=== PATIENT | male | born 1970 | race Caucasian/White ===

== ENCOUNTER 2022-07-13 11:55 | Emergency (ER) | payer MEDICAID, SELFPAY ==
[2022-07-13 12:07] VITALS: BP 170/105; PULSE 87; RESP 18; TEMP 36.7; O2SAT 99
--- NOTE | 2022-07-13 12:11 | ED.URI ---
HPI - URI/Sore Throat General Chief Complaint: Upper Respiratory Infection Stated Complaint: uri Time Seen by Provider: 07/13/22 12:12 Source: patient Mode of arrival: ambulatory Limitations: no limitations History of Present Illness HPI Narrative: Mr. Reilly is a 51-year-old male patient presenting to the clinic today with complaints of productive cough and wheezing. 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 States that he developed a cough and shortness of breath yesterday and its gradually gotten worse today. He denies any fever or chills MD elicited complaint: cough and other (Shortness of breath) Related Data Allergies Allergy/AdvReac Type Severity Reaction Status Date / Time No Known Allergies Allergy Verified 07/13/22 12:02 Review of Systems Review of Systems: Pertinent positives per HPI. Patient denies any fever, chills, rash, headache, visual changes, dizziness, cough, shortness of breath, chest pain, palpitations, nausea, vomiting, diarrhea, constipation, abdominal pain, or any urinary issues. PMFSH Comments At the time of my signature, I reviewed and agree with the nursing past medical, surgical, social, and family history. There is no relevant family history pertinent to the patient complaint. Exam Narrative: General: Well-developed, well nourished, in no apparent distress Head: Normocephalic, atraumatic Eyes: Pupils equally round and reactive to light bilaterally, EOM intact, sclera and conjunctive clear, no discharge, lids normal Ears: TMs intact and clear, ear canals clear, no drainage, grossly hearing normal. Nose: Nares patent, clear nasal discharge, no inflammation, no sinus tenderness. Mouth: Oral pharynx without lesions or masses, good dentition, MMM. Neck: Supple, trachea midline, no enlargement of anterior or posterior cervical nodes, no thyroid masses or goiter palpable. Cardio: Regular rate and rhythm, s1 and s2 normal, no murmur appreciated. Resp: Lung sounds tight, inspiratory and expiratory wheezing, no rhonchi, rales, or rubs, no retractions, able speak in full sentences without gasping for breaths. SPO2 99% on room air Course Course Emergency Course: Portions of this record may have been created with voice recognition software. Level of Care: Express Care Visit Vital Signs Vital signs: Vital signs reviewed MDM - URI/Sore Throat MDM Narrative Medical decision making narrative: At the time of visit patient is resting comfortably in the exam table. I suspect the patient has acute exacerbation of his asthma. He does not currently have a albuterol inhaler or any meds because he just got out of long term. I will send him in a prescription for some albuterol and some prednisone. DuoNeb handheld treatment was given in clinic today and this improved breath sounds in the wheezing. Supportive measures were discussed with the patient he voiced understanding of discharge instructions and agrees to treatment plan Differential Diagnosis Differential diagnosis: Likely upper respiratory infection, otitis media, sinusitis, viral infection, bronchitis, influenza, pharyngitis and other (COVID) Discharge Plan Discharge Clinical Impression: Asthma exacerbation, Upper respiratory infection Patient Disposition: Home, Self-Care Condition: Stable Instructions: Antibiotic Form, Upper Respiratory Infection (ED), Reactive Airways Disease (ED) Additional Instructions: Take prescription medications only as prescribed-prednisone and albuterol inhaler as prescribed Increase fluids and stay well hydrated Tylenol/motrin for pain/fever Flonase and OTC antihistamines as directed Vicks vapor rub to open sinuses Sinus rinses for congestion Cepacol spray, cough drops, throat lozenges, warm tea with honey/lemon, gargle salt water to soothe throat BRAT diet for diarrhea Clear liquids x 24 hours then advanc
[2022-07-13] MEDS: ALBUTEROL SULFATE NEB 2.5 MG/3 ML INH INHALATION (12:23)
[2022-07-13] MEDS: IPRATROPIUM BR 0.02% INH SOLN 0.5 MG/2.5 ML VIAL INHALATION (12:24)
== END 2022-07-13 12:55 | disposition home or self-care (01) ==
PROVIDERS: Emergency Provider Nurse Practitioner Family
DX: J45.901 Unspecified asthma with (acute) exacerbation (principal); J06.9 Acute upper respiratory infection, unspecified
CPT/HCPCS: 94640; 99203; G0463

== ENCOUNTER 2022-11-07 09:04 | Outpatient (CLI) | payer OTHER, SELFPAY ==
--- NOTE | ~2022-11-07 | XR_ITS ---
EXAMINATION: XR cervical spine 4-5V DATE: 11/07/2022 10:03 INDICATION: Neck pain. Back pain. TECHNIQUE: 4 views of cervical spine were obtained. COMPARISON: None. FINDINGS: There is 5 degrees dextrocurvature of cervical spine. There is mild kyphosis of cervical sp ine. Vertebral body heights are normal. There is mild to moderately decreased disc height from C4-C5 through C6-C7. There is multilevel uncovertebral joint osteoarthritis, severe bilaterally from C4-C5 through C6-C7. There is multilevel mild facet joint osteoarthrosis. There is mild central canal steno sis at C4-C5, C5-C6, and C6-C7. No prevertebral soft tissue swelling. There is plate and screw fixati on of the right side of the mandible. IMPRESSION: 1. Moderate cervical spondylosis. Reviewed, dictated and finalized at location A. CAL WRITER
--- NOTE | ~2022-11-07 | XR_ITS ---
Lumbosacral Spine: AP and lateral views Clinical History: Pain Findings: The normal lordotic curve is maintained. The vertebral bodies and posterior elements are i ntact. The intervertebral disc spaces are preserved. The sacroiliac joints are normally outlined. Impression: No significant abnormality. Reviewed, dictated and finalized at [facility]. STOCK RECORDER Impression: No significant abnormality.
--- NOTE | 2022-11-07 11:00 | NEURO_ITS ---
Impression: # Complains of numbness of hands. # Bilateral Carpal Tunnel Syndrome, left more than right. # No ulnar neuropathy. # Needle/EMG exam not requested. Motor Nerve Conduction Upper Extremities Median Nerve Conduction Velocity (m/sec) Terminal Latency (msec) Response Voltage(mV) Elbow-Wrist Wrist Elbow Wrist Right 58 4.0 1 1 Left 59 5.0 1 1 Ulnar Nerve Conduction Velocity (m/sec) Terminal Latency (msec) Response Voltage(mV) Above Elbow Below Elbow Wrist Above Elbow Below Elbow Wrist Right 58 2.6 7 8 Left 57 2.8 5 7 F-Wave Latency Median (ms) Ulnar (ms) Right 27.3 27.8 Left 27.9 27.0 Sensory Nerve Conduction Upper Extremities Median Nerve Stimulation Terminal Latency (msec) Wrist/Digit Response Voltage (uV) Wrist Right 4.7/5.7 16/35 Left 5.3/5.6 17/8 Ulnar Nerve Stimulation Terminal Latency (msec) Wrist/Digit Response Voltage (uV) Wrist Right 3.1 15 Left 3.1 11 Radial Nerve Terminal Latency (msec) Response Voltage(mV) Right 2.4 32 Left 2.4 28 MTDD
== END 2022-11-07 09:05 | disposition home or self-care (01) ==
LOC: ANHNEURO 09:08
DX: R20.0 Anesthesia of skin (principal); G56.03 Carpal tunnel syndrome, bilateral upper limbs; M47.892 Other spondylosis, cervical region
CPT/HCPCS: 72050; 72100; 95911

== ENCOUNTER 2023-01-13 22:21 | Emergency (ER) | payer OTHER, SELFPAY ==
[2023-01-13 22:37] VITALS: BP 165/95; PULSE 89; RESP 14; TEMP 36.6; O2SAT 99
--- NOTE | 2023-01-14 00:12 | ED.EAR ---
HPI - Ear Problem General Chief complaint: Ear Stated complaint: earache Time Seen by Provider: 01/13/23 23:58 History of Present Illness HPI Narrative: 52-year-old male here for evaluation of right ear pain x1 day. Patient states that his pain began yesterday while he was working on his car and he believes some pieces of rust got in his ear. Since then he has had pain and swelling. He denies any fevers, chills, nausea, vomiting, sinus congestion or decreased hearing. He is not a diabetic. Related Data Allergies Allergy/AdvReac Type Severity Reaction Status Date / Time No Known Allergies Allergy Verified 01/13/23 22:21 Review of Systems Review of Systems: Gen.: Denies fevers or chills Eyes: Denies eye pain or visual change ENT: Reports ear pain Respiratory: Denies shortness of breath or cough CV: Denies chest pain or palpitations GI: Denies abdominal pain nausea, emesis or diarrhea denies burning, urgency, frequency or hematuria Musculoskeletal: Denies back pain or muscle pain Neuro: Denies numbness, tingling, weakness or focal weakness Skin: Denies rash Except as documented, all other systems reviewed and negative Exam Narrative: APPEARANCE: Well appearing, no pain in distress, well-nourished. Head: Normocephalic and atraumatic. EYES: PERRLA/EOMI, conjunctivae clear NOSE: No nasal drainage EARS: Right ear canal is swollen and erythematous with small amounts of flaky debris noted, the tympanic membrane is partially visualized due to the above but the aspect that is visualized is intact. There is no mastoid tenderness. THROAT: Oropharynx is clear. Mucous membranes are moist. NECK: Supple. No adenopathy, no masses. RESPIRATORY: Airway patent, respirations nonlabored. Clear to auscultation bilaterally, no rales, rhonchi, wheezing. CARDIOVASCULAR: Regular rate and rhythm without murmurs, rubs, or gallops. ABDOMINAL: Normoactive bowel sounds. Soft, nontender, nondistended. No rebound tenderness or guarding. MUSCULOSKELETAL: Extremities are warm and well-perfused. Moves all extremities well. No edema. NEURO: Normal speech. No focal neurologic deficits. SKIN: Skin is warm and dry. No rashes. PSYCHIATRIC: Normal affect/mood. Course Vital Signs Vital signs: Vital Signs Temperature 97.9 F 01/13/23 22:37 Pulse Rate 89 01/13/23 22:37 Respiratory Rate 14 01/13/23 22:37 Blood Pressure 165/95 H 01/13/23 22:37 Pulse Oximetry 99 01/13/23 22:37 Oxygen Delivery Room Air 01/13/23 22:37 Temperature 97.9 F 01/13/23 22:37 Pulse Rate 89 01/13/23 22:37 Respiratory Rate 14 01/13/23 22:37 Blood Pressure 165/95 H 01/13/23 22:37 Pulse Oximetry 99 01/13/23 22:37 Oxygen Delivery Room Air 01/13/23 22:37 Medical Decision Making MDM Narrative Medical decision making narrative: 52-year-old male here due to swelling and pain of the right ear over the past day, he has swelling of the ear canal with some debris noted on exam consistent with otitis externa. The visualized portion of the TM are intact without evident infection. He be discharged home with topical drops. He is not diabetic and has no mastoid tenderness or pain with movement of the tragus. Return precautions were discussed and he voiced understanding. Vital Signs Vital Signs: Vital Signs Temperature 97.9 F 01/13/23 22:37 Pulse Rate 89 01/13/23 22:37 Respiratory Rate 14 01/13/23 22:37 Blood Pressure 165/95 H 01/13/23 22:37 Pulse Oximetry 99 01/13/23 22:37 Oxygen Delivery Room Air 01/13/23 22:37 Temperature 97.9 F 01/13/23 22:37 Pulse Rate 89 01/13/23 22:37 Respiratory Rate 14 01/13/23 22:37 Blood Pressure 165/95 H 01/13/23 22:37 Pulse Oximetry 99 01/13/23 22:37 Oxygen Delivery Room Air 01/13/23 22:37 Discharge Plan Discharge Clinical Impression: Otitis externa Patient Disposition: Home, Self-Care Condition: Stable Instructions: Antibiotic Form, Ear Infection (ED) Alex
== END 2023-01-14 00:38 | disposition home or self-care (01) ==
LOC: ANHED 01-14 00:18
PROVIDERS: Emergency Provider Physician Assistant
DX: H60.91 Unspecified otitis externa, right ear (principal)
CPT/HCPCS: 99283

== ENCOUNTER 2023-05-10 08:26 | Inpatient (IN) | payer OTHER, SELFPAY ==
[2023-05-10] VITALS (26 sets, daily range): BP systolic 121–157; BP diastolic 82–96; PULSE 93–116; RESP 12–36; TEMP 36.6–37.1; O2SAT 94–100; BMI 32.3
--- NOTE | ~2023-05-10 | CT_ITS ---
EXAMINATION: CT abdomen pelvis w con DATE: 05/12/2023 09:06 INDICATION: Abdominal wall intramuscular abscess TECHNIQUE: Computed tomography (CT) of the abdomen and pelvis was performed with 100 mL Omnipaque-350 intravenous contrast. Automated exposure control and iterative reconstruction technique were employe d. The dose-length product was 592.20 mGy-cm. COMPARISON: 05/10/2023 FINDINGS: Interval placement of a left lower quadrant percutaneous abscess drainage catheter which extends into the lateral side of a bilobed peripherally enhancing abscess cavity in the deep aspect of the left r ectus abdominis muscle. The catheter extends into the slightly larger more medial component of the ab scess cavity located along the midline slightly inferior to the umbilicus. The abscess cavity has dec reased in volume measuring 12.3 x 2.4 x 6.7 cm, previously 12.4 x 4.0 x 7.9 cm. Unchanged mild elevation the left hemidiaphragm. Increased atelectasis in the bilateral lower lobes a nd lingula. Heart size is normal. No pericardial or pleural effusion. Liver, gallbladder, spleen, escobar creas, bilateral adrenal glands and kidneys are normal. Bowels including the appendix are normal. Jose dder is normal. Small fat-containing inguinal hernias, left greater than right. No free intraperitone al gas or fluid. No pathologically enlarged abdominal or pelvic lymphadenopathy. Mild thoracic spondy losis. IMPRESSION: 1. Decrease in size of a now 12.3 x 2.4 x 6.7 cm abscess within the deep lower abdominal wall with pe rcutaneous drainage catheter in expected position. Reviewed, dictated and finalized at location A. IMPRESSION: 1. Decrease in size of a now 12.3 x 2.4 x 6.7 cm abscess within the deep lower abdominal wall with percutaneous drainage catheter in expected position.
--- NOTE | ~2023-05-10 | US_ITS ---
EXAMINATION: US guide abscess drainage DATE: 05/10/2023 14:38 INDICATION: Deep rectus abdominis muscular abscess TECHNIQUE: The procedure including the risks and benefits was discussed with the patient. Risks discu ssed included bleeding, infection and allergic reaction. Oral and written consent were obtained. The patient was confirmed to be receiving appropriate antibiotic coverage. The skin at the left lower qu adrant overlying the lateral margin of the abscess was prepped and draped in usual sterile fashion. Anesthetic was administered with 1% lidocaine subcutaneously. A 10 Fr catheter was inserted into the abscess cavity by trocar technique. The needle tip was withdrawn and the drainage catheter with stiff ener were advanced more medially across the abscess cavity utilizing ultrasound guidance. The metal s tiffener and trocar needle were removed, and the pigtail tip was locked. 13 mm of opaque booker purulent appearing fluid was aspirated and sent for culture. The catheter was stitched to the skin with sutur e. About equipment and a sterile dressing were applied. An additional adhesive fixation device was ap plied. There were no immediate complications. FINDINGS: Ultrasound images demonstrate a complex fluid collection within the deep aspect of the left rectus abdominis muscle. Subsequent images demonstrate the catheter extending from lateral to medial into the fluid collection. 13 mL round appearing fluid was aspirated. IMPRESSION: 1. Successful ultrasound-guided left rectus abdominis muscle. This abscess drainage catheter placemen t. 2. 13 mL round appearing fluid was sent for Gram stain and aerobic and anaerobic cultures. 3. The catheter will be managed by Dr. Garcia. Reviewed, dictated and finalized at location A. IMPRESSION: 1. Successful ultrasound-guided left rectus abdominis muscle. This abscess ian cheney catheter placement. 2. 13 mL round appearing fluid was sent for Gram stain and aerobic and anaerobi c cultures. 3. The catheter will be managed by Dr. Garcia.
--- NOTE | ~2023-05-10 | CT_ITS ---
CT of the Abdomen and Pelvis: Indication: Abdominal pain, mass Technique: 2.5 mm axial scans were obtained through the abdomen and pelvis following intravenous adm inistration of 100 cc of Omnipaque 350. Dose reduction technique was used on this scan by utilizing a utomated exposure control and iterative reconstruction technique. The dose-length product (DLP) was 6 71.25 mGy-cm. Findings: Scans through the lung bases are unremarkable. The liver, spleen, pancreas, gallbladder, adrenals and kidneys are within normal limits. No evidence of aortic aneurysm. No lymphadenopathy. No bowel obstruction or bowel wall thickening. Normal appendix. There is a 12.1 x 3.9 x 7.9 cm periph erally enhancing fluid collection immediately deep to accessory abutting the rectus abdominis muscula ture (axial images 115-143).. Images through the pelvis were performed. Urinary bladder unremarkable. Prostate gland and seminal ve sicles are unremarkable. Small fat-containing left inguinal hernia noted No ascites. Impression: 12.1 x 3.9 x 7.9 cm abscess medially subjacent/deep to the rectus abdominis musculature, as detailed above. Consider percutaneous drainage. Small fat-containing left inguinal hernia. Reviewed, dictated and finalized at location . Impression: 12.1 x 3.9 x 7.9 cm abscess medially subjacent/deep to the rectus abdominis mus culature, as detailed above. Consider percutaneous drainage. Small fat-containing left inguinal hernia.
[2023-05-10 09:27] LABS: Basophils Absolute Auto 0.1 K/mm3 (0.0-0.1); Basophils Percent Auto 0.2 % (0.2-1.2); Eosinophils Absolute Auto 0.1 K/mm3 (0-0.3); Eosinophils Percent Auto 0.2 % (0-4.4); Hematocrit 40.8 % (42.0-52.0); Hemoglobin 13.3 g/dL (14.0-18.0); Immature Granulocyte Absolute 0.33 K/mm3 (0.00-0.031); Immature Granulocyte Percent A 1.3 % (0-0.5); Lymphocytes Absolute Auto 1.35 K/mm3 (0.9-3.2); Lymphocytes Percent Auto 5.5 % (18.3-44.2); Mean Corpuscular HGB Conc 32.6 g/dl (32-36); Mean Corpuscular Hemoglobin 27.8 pg (26-34); Mean Corpuscular Volume 85.4 fl (80-100); Mean Platelet Volume 9.1 fl (7.4-10.4); Monocytes Absolute Auto 1.5 K/mm3 (0.1-0.6); Monocytes Percent Auto 5.9 % (2.6-8.5); Neutrophils Absolute Auto 21.5 K/mm3 (1.3-6.7); Neutrophils Percent Auto 86.9 % (45.5-73.1); Platelet Count Result 357 k/mm3 (150-375); Red Blood Count 4.78 M/mm3 (4.6-6.20); Red Cell Distribution Width 13.3 % (11.5-14.5); White Blood Count 24.7 K/mm3 (4.5-10.0)
[2023-05-10 09:36] LABS: Alanine Aminotransferase 24 U/L (6-50); Albumin Level 3.5 g/dL (3.5-5.1); Alkaline Phosphatase 95 U/L (38-126); Anion Gap 11 mmol/L (8-16); Aspartate Amino Transferase 28 U/L (17-59); Bilirubin,Total 0.5 mg/dL (0.2-1.3); Blood Urea Nitrogen 15 mg/dL (9-20); Calcium 8.7 mg/dL (8.4-10.2); Carbon Dioxide 24 mmol/L (22-30); Chloride 99 mmol/L (98-107); Estimated CRCL calculation 89 ml/min; Estimated Glomerular Filt Rate > 60; Glucose 145 mg/dL (65-110); Lipase 198 U/L (23-300); Potassium 4.4 mmol/L (3.4-5.0); Sodium 134 mmol/L (137-145)
[2023-05-10] MEDS: KETOROLAC 30 MG/ML VIAL (*BKC) IV PUSH (09:37)
[2023-05-10] MEDS: SODIUM CHLORIDE 0.9% IV 1,000 ML 999 ML IV CONT (09:37)
[2023-05-10 10:02] LABS: Lactic Acid Reflex 1.5 mmol/L (0.7-2.0)
--- NOTE | 2023-05-10 11:07 | ED.ABDPAIN ---
HPI - Abdominal Pain General Chief Complaint: Abdominal Pain Stated Complaint: abd pain Time Seen by Provider: 05/10/23 08:44 Source: patient and RN notes reviewed Mode of arrival: ambulatory Limitations: no limitations History of Present Illness HPI narrative: This is a 52 year old male who denies any medical problems who presents for evaluation of abdominal pain. Patient states has had constant left lower abdominal pain for 2 weeks. He has also noticed painful lump in that area for 2 months. He was seen at another facility a few days ago, and he is unsure of what was done at the facility. He states he was given some medication for pain but he is unsure of the medication. He reports decreased appetite but no vomiting. He denies any injury. Related Data Home Medications Medication Instructions Recorded Confirmed loratadine 10 mg tablet (Allergy 10 mg PO DAILY 05/10/23 05/10/23 Relief (loratadine)) Allergies Allergy/AdvReac Type Severity Reaction Status Date / Time No Known Allergies Allergy Verified 01/13/23 22:21 Review of Systems Constitutional: Constitutional: Reports fatigue and Denies weakness Cardiovascular: Cardiovascular: Denies syncope, Denies rapid heart rate, Denies irregular heart rhythm, Denies leg edema and Denies dyspnea Respiratory: Respiratory: Denies chest congestion, Denies hemoptysis, Denies excessive phlegm production and Denies dyspnea Gastrointestinal: Gastrointestinal: Reports abdominal pain, Denies hematochezia, Denies diarrhea and Denies vomiting Genitourinary: Genitourinary: Denies hematuria, Denies dysuria, Denies penile discharge and Denies testicular pain Musculoskeletal: Musculoskeletal: Denies joint swelling, Denies loss of height and Denies muscle weakness Neurologic: Denies syncope, Denies focal weakness and Denies weakness PMFSH Past Medical History Medical History (Updated 05/10/23 @ 17:48 by Nadira Thornton NP) Allergic rhinitis Asthma Patient denies medical problems Surgical History Surgical History (Updated 05/10/23 @ 17:48 by Nadira Thornton NP) History of mandibular surgery Related to an injury the patient had mandibular fracture. S/P repair of hydrocele S/P tonsillectomy and adenoidectomy Family History Family History Father Lung cancer Malignant neoplasm of prostate Father No problems noted. Social History Social History (Updated 05/10/23 @ 17:50 by Nadira Thornton NP) Social History: The patient has no children but lives with his significant other. 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 He is a lifelong nonsmoker. He denies any alcohol marijuana or illicit drugs. He does not have a durable power admitted attorneys for healthcare. Code status full code Smoking status: Never smoker Alcohol intake: never Substance use: never Lack of Transportation: No Lack of Food: Never True Current Housing: I Have Housing Concerned About Future Housing: No Difficulty Paying Gas/Electric Bills: No Difficulty Paying for Meds: No Currently Unemployed: No Education: Decline to Answer Difficulty w/ Childcare or Family Care: No Spiritual care concerns: No Exam Const: General: no acute distress Orientation/consciousness: patient oriented x3 HENMT: Head: normal to inspection Eyes: EOM: EOMs intact bilaterally Chest: Chest palpation & inspection: normal inspection of the chest Resp: Effort & Inspection: normal respiratory effort Auscultation: clear to auscultation bilaterally Cardio: Rhythm: regular rhythm Heart sounds: no murmurs GI: GI Palp: Yes Soft to palpation, Yes Tenderness to palpation present (GI) and Yes Palpable mass present (suprapubic and left lower abdominal mass) Auscultation: normal bowel sounds Skin: General skin exam: normal color Rashes: no rashes Wounds: no wou
[2023-05-10 11:50] LABS: Appearance Urine Clear (Clear); Bacteria Urine None Seen /hpf; Bilirubin Urine Negative (Negative); Blood Urine Negative (Negative); Color Urine Yellow (Yellow); Glucose Urine UA Negative (Negative); Ketones Urine Negative (Negative); Leukocyte Esterase Ur Negative LEU/UL (Negative); Nitrate Urine Negative (Negative); Non Pathogenic Casts 0-2; Protein Urine Trace mg/dL (Negative); RBC Urine 0-2 /hpf (0-2); Specific Grav Ur 1.034 (1.001-1.035); Squamous Epithelial Cell Urine None seen /hpf (Few); Urobilinogen Urine 0.2 mg/dL (<2.0); WBC Urine 0-5 /hpf
[2023-05-10 12:04] LABS: Add Urine Microscopic? YES
--- NOTE | 2023-05-10 12:15 | ADMGEN ---
This patient, Jorgito Reilly, was admitted to [address] [place] [address] Room 300-01. Patient/family oriented to hospital policies and general routines including ID bracelet, bed and alarms, visiting hours, pain management, procedures, bathroom and other care routines, personal items, smoking policy, room service/diet, and visiting hours. Information on how to activate the Rapid Response Team has been discussed. Patient/Family are encouraged to report perceived risks to care and to ask questions if they do not understand what they are told or what they should do.
[2023-05-10 12:54] LABS: INR 1.2; Prothrombin Time 16.2 Seconds (11.1-14.7)
[2023-05-10 12:55] LABS: Partial Thromboplastin Time 33.8 SECONDS (22.3-36.8)
[2023-05-10] MEDS: PIPERACILLN/TAZ 3.375GM/NS50ML 3.375 GM/50 ML BAG IVPB ×2 (13:00→17:24)
[2023-05-10] MEDS: SODIUM CHLORIDE 0.9% IV 1,000 ML 200 ML IV CONT ×2 (14:51→20:22)
--- NOTE | 2023-05-10 15:06 | PM.IMHP ---
H&P: HPI History of Present Illness Date/Time: 05/10/23 15:06 Chief Complaint: Abdominal pain Narrative: This is a 52-year-old male patient who has no prior medical history except for asthma and is usually well controlled and has a p.r.n. inhaler. 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 The patient stated that he has had a constant left lower abdominal pain for the last 2 weeks. He also noticed a painful lump to that area. The patient was seen at another facility a few days ago. The patient stated he was sent home on p.o. antibiotics and he was not getting any better. He was also given pain medication which did not help. He reports a decreased appetite but had no vomiting. The patient is now stating that he is hungry. His white count was noted to be 24.7. H&H is 13.3 and 40.8. Neutrophil percentage 86.9. Sodium is 134. Had abdominal pelvis CT was read as a following 12.1 x 3.9 x 7.9 cm abscess medially subjacent/deep to the rectus abdominis musculature, as detailed above. Consider percutaneous drainage. Small fat-containing left inguinal hernia. Abscess drainage ultrasound was read as following 1. Successful ultrasound-guided left rectus abdominis muscle. This abscess drainage catheter placement. ? 2. 13 mL round appearing fluid was sent for Gram stain and aerobic and anaerobic cultures.? 3. The catheter will be managed by Dr. Garcia. The patient was started on IV fluids Toradol and given Zosyn. The patient is being admitted to inpatient status on the date of service of 05/10/2023. Review of Systems Review of Systems: All systems reviewed & are unremarkable except as noted in HPI and below Constitutional: Constitutional: Reports as per HPI and Reports no additional constitutional complaints Eyes: Eyes: Reports as per HPI and Reports no additional eye complaints ENT: Reports system reviewed and no additional complaints, except as documented and Reports Normal hearing present Cardiovascular: Cardiovascular: Reports no additional cardiovascular complaints Respiratory: Respiratory: Reports no additional respiratory complaints and Reports no additional respiratory complaints Gastrointestinal: Gastrointestinal: Reports as per HPI and Reports no additional gastrointestinal complaints Musculoskeletal: Musculoskeletal: Reports no additional musculoskeletal complaints Integumentary/Breasts: Skin/Breast: Reports system reviewed and no additional complaints, except as docu and Reports as per HPI Neurologic: Reports system reviewed and no additional complaints, except as documented, Reports as per HPI and Reports Normal hearing present Psychiatric: Psychiatric: Reports no additional psychiatric complaints and Reports as per HPI Endocrine: Endocrine: Reports no additional endocrine complaints Hematologic/Lymphatic: Hematologic/Lymphatic: Reports no additional hematologic/lymphatic complaints Allergic/Immunologic: Allergic/Immunologic: Reports no additional allergic/immunologic complaints [facility] Past Medical History Medical History (Updated 05/10/23 @ 17:48 by Nadira Thornton NP) Allergic rhinitis Asthma Patient denies medical problems Surgical History Surgical History (Updated 05/10/23 @ 17:48 by Nadira Thornton NP) History of mandibular surgery Related to an injury the patient had mandibular fracture. S/P repair of hydrocele S/P tonsillectomy and adenoidectomy Family History Family History Father Lung cancer Malignant neoplasm of prostate Father No problems noted. Social History Social History (Updated 05/10/23 @ 17:50 by Nadira Thornton NP) Social History: The patient has no children but lives with his significant other. 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 He is a lifelong nonsmoker. He denies any alcohol marijuana or illi
--- NOTE | 2023-05-10 16:12 | WPDCN ---
Assessment and Plan Assessment and plan (1) Abdominal abscess: Status: Acute Assessment and Plan: Patient has intra-abdominal abscess just deep to the rectus muscle in the periumbilical region. He has had no prior history of diverticulitis or colitis or enteritis. He has not had any previous abdominal surgery and no pieces of mesh in the abdominal wall. He denies any significant trauma to the area that may have formed hematoma particular got infected. Another thought maybe that he has a urachal cyst which got infected and caused this abscess. However he has had no urinary symptoms. At this point the abscess has been drained percutaneously with image guidance. He remains on IV antibiotics. Will await culture results to make sure that we were appropriately covering the offending organisms. He can go and have a diet for now. Likely repeat CT scan a couple days to make sure the abscess resolved and then hopefully remove the drain. For now he does not have acute surgical abdomen and no general surgeon procedures are indicated. Will follow. HPI Data of Consult Date/Time: 05/10/23 16:12 Requesting Physician: Zuleima Tijerina MD Primary Care Provider: HEAVY LIFT RIGGER PHYSICIAN Consult Narrative Reason for consult: Abdominal pain and intra-abdominal abscess Narrative: Jorgito Reilly is a 52 year old male who presented to the emergency room complaining of a 2 week history of slowly worsening mid abdominal pain in the area the umbilicus. He has noticed swelling in the area. Denies any nausea or vomiting. Bowel habits were normal. He denies any significant trauma to the area but he does work where that area of his abdomen is in contact with some machinery and regular rubs up against it. He denies any recent history of infection of his umbilicus. He has never had abdominal surgery in the past. Workup in the emergency room showed him to have a leukocytosis of 25,000. He was afebrile. CT scan abdomen pelvis showed a large abscess in the central portion abdomen in the area underneath the umbilicus. Was intra-abdominal deep to the rectus muscles. He was initially treated emergency room and given some IV antibiotics. He has now been treated with image guided percutaneous drainage of the abscess in Radiology. Output from the drain is purulent fluid and cultures of the fluid were sent to microbiology and are pending. Review of Systems Review of Systems: The remainder of the review of systems to include constitutional, HEENT, cardiovascular, respiratory, GI, , integumentary, musculoskeletal, endocrine, immunologic, hematologic, psychiatric, and neurologic are all negative except for which is mentioned above in the HPI. [facility] Past Medical History Medical History Patient denies medical problems Surgical History Surgical History No pertinent past surgical history Family History Family History Father Lung cancer Malignant neoplasm of prostate Father No problems noted. Social History Social History Smoking status: Never smoker Alcohol intake: never Substance use: never Lack of Transportation: No Lack of Food: Never True Current Housing: I Have Housing Concerned About Future Housing: No Difficulty Paying Gas/Electric Bills: No Difficulty Paying for Meds: No Currently Unemployed: No Education: Decline to Answer Difficulty w/ Childcare or Family Care: No Spiritual care concerns: No Meds Home Medications and Allergies Home Medications Medication Instructions Recorded Confirmed Type albuterol sulfate 90 mcg/actuation 2 puff inhalation Q4-6H PRN 07/13/22 05/10/23 Rx aerosol inhaler shortness of breath or wheezing 30 days #8.5 grams prednisone 20 mg table
[2023-05-10] MEDS: MORPHINE SULFATE (*CRX) 4 MG/ML INJ IV PUSH ×2 (17:22→23:59)
[2023-05-11] MEDS: PIPERACILLN/TAZ 3.375GM/NS50ML 3.375 GM/50 ML BAG IVPB ×4 (00:01→17:24)
[2023-05-11] MEDS: SODIUM CHLORIDE 0.9% IV 1,000 ML 200 ML IV CONT ×2 (02:07→08:40)
[2023-05-11] MEDS: MORPHINE SULFATE (*CRX) 4 MG/ML INJ IV PUSH (04:40)
[2023-05-11 06:00] VITALS: BP 145/89; PULSE 104; RESP 20; TEMP 36.7; O2SAT 100
[2023-05-11 06:42] LABS: Basophils Absolute Auto 0.1 K/mm3 (0.0-0.1); Basophils Percent Auto 0.4 % (0.2-1.2); Eosinophils Absolute Auto 0.1 K/mm3 (0-0.3); Eosinophils Percent Auto 0.4 % (0-4.4); Hematocrit 40.6 % (42.0-52.0); Hemoglobin 12.4 g/dL (14.0-18.0); Immature Granulocyte Percent A 1.1 % (0-0.5); Lymphocytes Absolute Auto 1.54 K/mm3 (0.9-3.2); Lymphocytes Percent Auto 8.5 % (18.3-44.2); Mean Corpuscular HGB Conc 30.5 g/dl (32-36); Mean Corpuscular Hemoglobin 27.6 pg (26-34); Mean Corpuscular Volume 90.2 fl (80-100); Mean Platelet Volume 10.2 fl (7.4-10.4); Monocytes Absolute Auto 1.4 K/mm3 (0.1-0.6); Monocytes Percent Auto 7.6 % (2.6-8.5); Neutrophils Absolute Auto 14.8 K/mm3 (1.3-6.7); Platelet Count Result 294 k/mm3 (150-375); Red Cell Distribution Width 13.7 % (11.5-14.5)
[2023-05-11 06:53] LABS: Lactic Acid Reflex 2.1 mmol/L (0.7-2.0)
[2023-05-11 06:56] LABS: Alanine Aminotransferase 20 U/L (6-50); Albumin Level 3.3 g/dL (3.5-5.1); Alkaline Phosphatase 87 U/L (38-126); Anion Gap 8 mmol/L (8-16); Aspartate Amino Transferase 28 U/L (17-59); Bilirubin,Total 0.6 mg/dL (0.2-1.3); Blood Urea Nitrogen 16 mg/dL (9-20); Calcium 8.1 mg/dL (8.4-10.2); Carbon Dioxide 24 mmol/L (22-30); Chloride 102 mmol/L (98-107); Estimated CRCL calculation 80 ml/min; Estimated Glomerular Filt Rate > 60; Glucose 104 mg/dL (65-110); Potassium 4.6 mmol/L (3.4-5.0); Sodium 134 mmol/L (137-145)
[2023-05-11] MEDS: LORATADINE 10 MG TABLET PO (08:41)
[2023-05-11 09:41] LABS: Reflex Lactic Acid Yes or No Add Lactic
[2023-05-11 10:17] LABS: Lactic Acid 1.4 mmol/L (0.7-2.0)
--- NOTE | 2023-05-11 12:30 | PM.IMPN ---
Progress Note: A&P Assessment and Plan (1) Abdominal abscess: Status: Acute Assessment and Plan: Presented presented to the ED with complaints of constant left lower abdominal pain for about [address] of the abd/pel 12.1 x 3.9 x 7.9cm abscess medially subjacent/deep rectus abdominis musculature General surgery consulted Continue Zosyn Q6H IV for now Perc Drain inserted Blood cultures pending Wound cultures WBC no organisms seen WBC 24.7 upon admission, 18.0 currently continue to trend (2) Asthma: Qualifiers: Asthma complication type: unspecified Asthma persistence: unspecified Asthma severity: unspecified severity Qualified Code(s): J45.909 - Unspecified asthma, uncomplicated Code(s): J45.909 - Unspecified asthma, uncomplicated Status: Acute Assessment and Plan: Chronic and stable Continue with inhaler trend respiratory distress stable at this time (3) Allergic rhinitis: Qualifiers: Allergic rhinitis seasonality: unspecified Allergic rhinitis trigger: unspecified Qualified Code(s): J30.9 - Allergic rhinitis, unspecified Code(s): J30.9 - Allergic rhinitis, unspecified Status: Acute Assessment and Plan: Continue with allergy medicine. (4) Sepsis: Qualifiers: Sepsis type: sepsis due to unspecified organism Sepsis acute organ dysfunction status: unspecified Qualified Code(s): A41.9 - Sepsis, unspecified organism Code(s): A41.9 - Sepsis, unspecified organism Status: Acute Assessment and Plan: Currently meets SIRS criteria heart rate 116, RR 36, Lactic acid 2.1, WBC was 24.7 source of infection Source of infection is the abdominal abscess CT of abdomen shows pretty large abscess Repeat Lactic 1.4 Blood cultures pending wound culture does not show any organisms Continue IV antibiotics Zosyn Trend labs Adjust therapy as indicated Time Spent With Patient Time: 38 minutes Time with patient: Greater than 35 minutes Subjective Date/time seen: 05/11/23 1230 Interval history: 05/11/23 123 Patient is laying in bed. He is stating that he is have a sinus headache. He also stated that he is having some abdominal pain. He stated that the headache is worse than the abdominal pain. He denies any chest pain, shortness of breath, nausea, vomiting, diarrhea, constipation. Drain is intact, draining a thick booker fluid. 05/10/23? 15:06 This is a 52-year-old male patient who has no prior medical history except for asthma and is usually well controlled and has a p.r.n. inhaler.? 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 The patient stated that he has had a constant left lower abdominal pain for the last 2 weeks.? He also noticed a painful lump to that area.? The patient was seen at another facility a few days ago.? The patient stated he was sent home on p.o. antibiotics and he was not getting any better.? He was also given pain medication which did not help.? He reports a decreased appetite but had no vomiting.? The patient is now stating that he is hungry.? His white count was noted to be 24.7.? H&H is 13.3 and 40.8.? Neutrophil percentage 86.9.? Sodium is 134.? Had abdominal pelvis CT was read as a following?12.1 x 3.9 x 7.9 cm abscess medially subjacent/deep to the rectus abdominis musculature, as detailed above. Consider percutaneous drainage. Small fat-containing left inguinal hernia. Abscess drainage ultrasound was read as following 1. Successful ultrasound-guided left rectus abdominis muscle. This abscess drainage catheter placement. ? 2. 13 mL round appearing fluid was sent for Gram stain and aerobic and anaerobic cultures.? 3. The catheter will be managed by Dr. Garcia. The patient was started on IV fluids Toradol and given Zosyn.? The patient is being admitted to inpatient status on the date of service of
[2023-05-11 14:00] VITALS: BP 135/90; PULSE 99; RESP 20; TEMP 36.2; O2SAT 100
[2023-05-11] MEDS: METOCLOPRAMIDE HCL INJ 10 MG/2 ML VIAL IV PUSH (14:57)
[2023-05-11] MEDS: diphenhydrAMINE HCl INJ 50 MG/ML VIAL 25 MG IV PUSH (14:57)
--- NOTE | 2023-05-11 16:25 | PM.PNGS ---
Progress Note: A&P Assessment and Plan (1) Abdominal abscess: Status: Acute Assessment and Plan: Abscess has been drained. Continue IV antibiotics and await culture results. Repeat CT scan in 24 to 48 hours to see if the abscess has resolved. Continue supportive management. Will follow. Subjective Subjective Date/Time Seen: 05/11/23 16:25 Interval history: Patient is doing better today. Having less mid abdominal wall pain. He had a ultrasound-guided placement of a percutaneous drain into the abscess cavity yesterday. Culture results are still pending . White blood cell count is down 18,000 today. He is tolerating regular diet. Exam GI: Other: Abdomen soft and nondistended. Still has some vague firmness in the periumbilical region. No fluctuance is noted. No redness skin is noted. Drain exits the left lower quadrant the abdomen. Output from the drain is purulent. Objective Data Vital Signs Vital Signs: Vital Signs - 24 hr 05/10/23 20:00 05/10/23 21:52 05/10/23 22:00 Temperature 36.9 C Pulse Rate 95 108 H 96 Respiratory Rate 16 14 Blood Pressure 140/91 H Pulse Oximetry 100 96 98 Oxygen Delivery Room Air Room Air Fraction of Inspired Oxygen 21 05/11/23 06:00 05/11/23 08:40 05/11/23 14:00 Temperature 36.7 C 36.2 C L Pulse Rate 104 H 99 Respiratory Rate 20 20 Blood Pressure 145/89 H 135/90 Pulse Oximetry 100 100 Oxygen Delivery Room Air Fraction of Inspired Oxygen Intake/Output Intake/Output: Intake & Output 05/08/23 05/09/23 05/10/23 05/11/23 23:59 23:59 23:59 23:59 Intake Total 2572 2914 Output Total 13 960 Balance 4357 3404 Meds/Results Medications: Active Medications Generic Name Dose Route Start Last Admin Trade Name Freq PRN Reason Stop Dose Admin Hydrocodone Bitart/Acetaminophen 1 tab 05/10/23 17:57 Hydrocodone/Acetaminophen (*Crx) 5-325 Mg Tablet PO Q4H PRN Pain Rated 4-6 Albuterol 2 puff 05/10/23 17:54 Albuterol Sulfate (*Sp) Aerosol 1 Puff INHALATION Q4HRT PRN shortness of breath or wheezing Piperacillin/Tazobactam/Dextrose 3.375 gm in 50 mls @ 100 mls/hr 05/10/23 18:00 05/11/23 13:03 Zosyn 3.375 Gm/Ns 50 Ml IVPB Infused Q6HR SOFIA Infusion Loratadine 10 mg 05/11/23 09:00 05/11/23 08:41 Loratadine 10 Mg Tablet PO 10 mg DAILY SOFIA Administration Morphine Sulfate 4 mg 05/10/23 11:09 05/11/23 04:40 Morphine Sulfate (*Crx) 4 Mg/Ml Inj IV PUSH 4 mg Q4H PRN Administration Pain Rated 7-10 Ondansetron HCl 4 mg 05/10/23 11:09 Ondansetron Inj 4 Mg/2 Ml Vial IV PUSH Q4H PRN Nausea Radiology Results: ITS Impressions Abdomen/Pelvis CT 05/10/23 10:14 Impression: 12.1 x 3.9 x 7.9 cm abscess medially subjacent/deep to the rectus abdominis musculature, as detailed above. Consider percutaneous drainage. Small fat-containing left inguinal hernia. Abscess Drainage Ultrasound 05/10/23 14:42 IMPRESSION: 1. Successful ultrasound-guided left rectus abdominis muscle. This abscess drainage catheter placement. 2. 13 mL round appearing fluid was sent for Gram stain and aerobic and anaerobic cultures. 3. The catheter will be managed by Dr. Garcia. Labs Labs: Laboratory Results - last 24 hr 05/11/23 05/11/23 06:02 09:54 WBC 18.0 H RBC 4.50 L Hgb 12.4 L Hct 40.6 L MCV 90.2 D MCH 27.6 MCHC 30.5 L RDW 13.7 Plt Count 294 MPV 10.2 Immature Gran % (Auto) 1.1 H Neut % (Auto) 82.0 H Lymph % (Auto) 8.5 L Benton % (Auto) 7.6 Eos % (Auto) 0.4 Baso % (Auto) 0.4 Lymph # (Auto) 1.54 Benton # (Auto) 1.4 H Eos # (Auto) 0.1 Baso # (Auto) 0.1 Abs Immat Gran (auto) 0.20 H Absolute Neuts (auto) 14.8 H Absolute Nucleated RBC 0.0 Nucleated RBC % 0.0 Sodium 134 L Potassium 4.6 Chloride 102 Carbon Dioxide 24 Anion Gap 8 BUN 16 Creatinine 1.00 Estim Creat Clear Calc
[2023-05-11 21:40] VITALS: O2SAT 95
[2023-05-11 21:50] VITALS: BP 136/80; PULSE 89; RESP 14; TEMP 36.7; O2SAT 95
[2023-05-12] MEDS: PIPERACILLN/TAZ 3.375GM/NS50ML 3.375 GM/50 ML BAG IVPB ×4 (01:10→19:58)
[2023-05-12 06:00] VITALS: BP 129/89; PULSE 87; RESP 14; TEMP 35.9; O2SAT 99
[2023-05-12 06:47] LABS: Basophils Absolute Auto 0.1 K/mm3 (0.0-0.1); Basophils Percent Auto 0.4 % (0.2-1.2); Eosinophils Absolute Auto 0.2 K/mm3 (0-0.3); Eosinophils Percent Auto 1.1 % (0-4.4); Hematocrit 42.4 % (42.0-52.0); Hemoglobin 13.3 g/dL (14.0-18.0); Immature Granulocyte Absolute 0.21 K/mm3 (0.00-0.031); Immature Granulocyte Percent A 1.5 % (0-0.5); Lymphocytes Absolute Auto 1.33 K/mm3 (0.9-3.2); Lymphocytes Percent Auto 9.2 % (18.3-44.2); Mean Corpuscular HGB Conc 31.4 g/dl (32-36); Mean Corpuscular Hemoglobin 27.7 pg (26-34); Mean Corpuscular Volume 88.1 fl (80-100); Mean Platelet Volume 9.6 fl (7.4-10.4); Monocytes Absolute Auto 1.1 K/mm3 (0.1-0.6); Monocytes Percent Auto 7.6 % (2.6-8.5); Neutrophils Absolute Auto 11.6 K/mm3 (1.3-6.7); Neutrophils Percent Auto 80.2 % (45.5-73.1); Platelet Count Result 380 k/mm3 (150-375); Red Blood Count 4.81 M/mm3 (4.6-6.20); Red Cell Distribution Width 13.2 % (11.5-14.5); White Blood Count 14.5 K/mm3 (4.5-10.0)
[2023-05-12 07:09] LABS: Alanine Aminotransferase 47 U/L (6-50); Albumin Level 3.6 g/dL (3.5-5.1); Alkaline Phosphatase 117 U/L (38-126); Anion Gap 12 mmol/L (8-16); Aspartate Amino Transferase 62 U/L (17-59); Bilirubin,Total 0.4 mg/dL (0.2-1.3); Blood Urea Nitrogen 14 mg/dL (9-20); Calcium 8.7 mg/dL (8.4-10.2); Carbon Dioxide 23 mmol/L (22-30); Chloride 102 mmol/L (98-107); Estimated CRCL calculation 80 ml/min; Estimated Glomerular Filt Rate > 60; Glucose 97 mg/dL (65-110); Magnesium 2.2 mg/dL (1.6-2.3); Sodium 137 mmol/L (137-145)
[2023-05-12 08:22] LABS: Potassium 4.2 mmol/L (3.4-5.0)
[2023-05-12] MEDS: LORATADINE 10 MG TABLET PO (09:48)
--- NOTE | 2023-05-12 10:00 | PM.IMPN ---
Progress Note: A&P Assessment and Plan (1) Abdominal abscess: Status: Acute Assessment and Plan: Presented presented to the ED with complaints of constant left lower abdominal pain for about [address] of the abd/pel 12.1 x 3.9 x 7.9cm abscess medially subjacent/deep rectus abdominis musculature (05/10/23) Repeat CT pending results General surgery consulted Continue Zosyn Q6H IV for now Perc Drain still draining brown/booker thick purulent fluid Blood cultures pending Wound cultures WBC no organisms seen WBC 24.7 upon admission, continues to decline currently 14.5 continue to trend (2) Asthma: Qualifiers: Asthma complication type: unspecified Asthma persistence: unspecified Asthma severity: unspecified severity Qualified Code(s): J45.909 - Unspecified asthma, uncomplicated Code(s): J45.909 - Unspecified asthma, uncomplicated Status: Acute Assessment and Plan: Chronic and stable Continue with inhaler trend respiratory distress stable at this time (3) Allergic rhinitis: Qualifiers: Allergic rhinitis seasonality: unspecified Allergic rhinitis trigger: unspecified Qualified Code(s): J30.9 - Allergic rhinitis, unspecified Code(s): J30.9 - Allergic rhinitis, unspecified Status: Acute Assessment and Plan: Continue with allergy medicine. (4) Sepsis: Qualifiers: Sepsis acute organ dysfunction status: unspecified Sepsis type: sepsis due to unspecified organism Qualified Code(s): A41.9 - Sepsis, unspecified organism Code(s): A41.9 - Sepsis, unspecified organism Status: Acute Assessment and Plan: Currently meets SIRS criteria heart rate 116, RR 36, Lactic acid 2.1, WBC was 24.7 source of infection Source of infection is the abdominal abscess CT of abdomen shows pretty large abscess Repeat Lactic 1.4 Blood cultures NGTD wound culture does not show any organisms Continue IV antibiotics Zosyn Trend labs Adjust therapy as indicated Resolving (5) Migraine: Qualifiers: Intractability: intractable Migraine type: without aura Status migrainosus presence: with status migrainosus Qualified Code(s): G43.011 - Migraine without aura, intractable, with status migrainosus Code(s): G43.909 - Migraine, unspecified, not intractable, without status migrainosus Status: Acute Assessment and Plan: Noted migraine on exam On time Imitrex, Reglan, and Benadryl trend symptoms Resolved Time Spent With Patient Time: 38 minutes Time with patient: Greater than 35 minutes Subjective Date/time seen: 05/12/23 1000 Interval history: 05/12/23 1000 Patient is lying in bed. Patient stated that he does feel a lot better than he has been. He stated that his pain is currently a 3-4/10. He also stated that his headache was gone. He has been walking around and stated that his appetite is fine. Drain is still draining a thick brown purulent fluid. He denies any current urination issues, chest pain, shortness a breath, nausea, vomiting, diarrhea, constipation. CT of the abdomen pelvis was repeated this morning awaiting results. 05/11/23 1230 Patient is laying in bed. He is stating that he is have a sinus headache. He also stated that he is having some abdominal pain. He stated that the headache is worse than the abdominal pain. He denies any chest pain, shortness of breath, nausea, vomiting, diarrhea, constipation. Drain is intact, draining a thick booker fluid. 05/10/23? 15:06 This is a 52-year-old male patient who has no prior medical history except for asthma and is usually well controlled and has a p.r.n. inhaler.? 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 The patient stated that he has had a constant left lower abdominal pain for the last 2 weeks.? He also noticed a painful l
--- NOTE | 2023-05-12 10:00 | P.PNIM_ITS ---
Progress Note: A&P Assessment and Plan (1) Abdominal abscess: Status: Acute Assessment and Plan: * Presented presented to the ED with complaints of constant left lower abdominal pain for about 2 weeks * CT of the abd/pel 12.1 x 3.9 x 7.9cm abscess medially subjacent/deep rectus abdominis musculature (05/10/23) * Repeat CT pending results * General surgery consulted * Continue Zosyn Q6H IV for now * Perc Drain still draining brown/booker thick purulent fluid * Blood cultures pending * Wound cultures WBC no organisms seen * WBC 24.7 upon admission, continues to decline currently 14.5 * continue to trend (2) Asthma: Qualifiers: Asthma complication type: unspecified Asthma persistence: unspecified Asthma severity: unspecified severity Qualified Code(s): J45.909 - Unspecified asthma, uncomplicated Code(s): J45.909 - Unspecified asthma, uncomplicated Status: Acute Assessment and Plan: * Chronic and stable * Continue with inhaler * trend respiratory distress * stable at this time (3) Allergic rhinitis: Qualifiers: Allergic rhinitis seasonality: unspecified Allergic rhinitis trigger: unspecified Qualified Code(s): J30.9 - Allergic rhinitis, unspecified Code(s): J30.9 - Allergic rhinitis, unspecified Status: Acute Assessment and Plan: * Continue with allergy medicine. (4) Sepsis: Qualifiers: Sepsis acute organ dysfunction status: unspecified Sepsis type: sepsis due to unspecified organism Qualified Code(s): A41.9 - Sepsis, unspecified organism Code(s): A41.9 - Sepsis, unspecified organism Status: Acute Assessment and Plan: * Currently meets SIRS criteria heart rate 116, RR 36, Lactic acid 2.1, WBC was 24.7 source of infection * Source of infection is the abdominal abscess * CT of abdomen shows pretty large abscess * Repeat Lactic 1.4 * Blood cultures NGTD * wound culture does not show any organisms * Continue IV antibiotics Zosyn * Trend labs * Adjust therapy as indicated * Resolving (5) Migraine: Qualifiers: Intractability: intractable Migraine type: without aura Status migrainosus presence: with status migrainosus Qualified Code(s): G43.011 - Migraine without aura, intractable, with status migrainosus Code(s): G43.909 - Migraine, unspecified, not intractable, without status migrainosus Status: Acute Assessment and Plan: * Noted migraine on exam * On time Imitrex, Reglan, and Benadryl * trend symptoms * Resolved Time Spent With Patient Time: 38 minutes Time with patient: Greater than 35 minutes Subjective Date/time seen: 05/12/23 1000 Interval history: 05/12/23 1000 Patient is lying in bed. Patient stated that he does feel a lot better than he has been. He stated that his pain is currently a 3-4/10. He also stated that his headache was gone. He has been walking around and stated that his appetite is fine. Drain is still draining a thick brown purulent fluid. He denies any current urination issues, chest pain, shortness a breath, nausea, vomiting, diarrhea, constipation. CT of the abdomen pelvis was repeated this morning awaiting results. 05/11/23 1230 Patient is laying in bed. He is stating that he is have a sinus headache. He also stated that he is having some abdominal pain. He stated that the headache is worse than the abd
--- NOTE | 2023-05-12 12:07 | PM.PNGS ---
Progress Note: A&P Assessment and Plan (1) Abdominal abscess: Status: Acute Assessment and Plan: Abdominal wall abscess. Has been percutaneously drained. Most likely reason for developed the abscess is probable infected hematoma from repetitive trauma to the area. This then became infected. The CT scan this morning shows incomplete drainage of the abscess cavity but after speaking with the radiologist he does not believe placement of 2nd catheter will be helpful. I have flushed the catheter and the catheter tubing hopefully this will allow the catheter to drain better. If abscess is not completely resolved or least much smaller than he may need operative drainage. For now will continue Zosyn. MRSA is culture that we need to switch him to vancomycin or something else that MRSA is sensitive to. Continue present management. Subjective Subjective Date/Time Seen: 05/12/23 12:07 Interval history: Patient states he feels better today. Less periumbilical pain. [place] [address]. He had CT scan abdomen pelvis to reexamine the abscess cavity this morning that showed interval decrease in size the abscess cavity after placement of percutaneous drain but states it is still sizable and incompletely drained. I spoke with the radiologist and he did not feel the placement of additional drain would improve drainage. A robotic culture shows moderate growth of Staphylococcus aureus organism. Sensitivities are pending and so we do not know if it is MRSA. No anaerobic growth in the cultures. Exam GI: Other: Abdomen soft and nondistended. Mild periumbilical tenderness. Vague induration in the periumbilical region but no erythema of the skin the left lower quadrant percutaneous drain output is purulent and about 50cc in the past 24hours. Objective Data Vital Signs Vital Signs: Vital Signs - 24 hr 05/11/23 14:00 05/11/23 21:50 05/11/23 21:40 Temperature 36.2 C L 36.7 C Pulse Rate 99 89 Respiratory Rate 20 14 Blood Pressure 135/90 136/80 Pulse Oximetry 100 95 95 Oxygen Delivery Room Air 05/12/23 06:00 Temperature 35.9 C L Pulse Rate 87 Respiratory Rate 14 Blood Pressure 129/89 Pulse Oximetry 99 Oxygen Delivery Intake/Output Intake/Output: Intake & Output 05/09/23 05/10/23 05/11/23 05/12/23 23:59 23:59 23:59 23:59 Intake Total 2572 4584 336 Output Total 13 960 40 Balance 2559 3624 296 Meds/Results Medications: Active Medications Generic Name Dose Route Start Last Admin Trade Name Freq PRN Reason Stop Dose Admin Hydrocodone Bitart/Acetaminophen 1 tab 05/10/23 17:57 Hydrocodone/Acetaminophen (*Crx) 5-325 Mg Tablet PO Q4H PRN Pain Rated 4-6 Albuterol 2 puff 05/10/23 17:54 Albuterol Sulfate (*Sp) Aerosol 1 Puff INHALATION Q4HRT PRN shortness of breath or wheezing Piperacillin/Tazobactam/Dextrose 3.375 gm in 50 mls @ 100 mls/hr 05/10/23 18:00 05/12/23 11:59 Zosyn 3.375 Gm/Ns 50 Ml IVPB 100 mls/hr Q6HR SOFIA Administration Loratadine 10 mg 05/11/23 09:00 05/12/23 09:48 Loratadine 10 Mg Tablet PO 10 mg DAILY SOFIA Administration Morphine Sulfate 4 mg 05/10/23 11:09 05/11/23 04:40 Morphine Sulfate (*Crx) 4 Mg/Ml Inj IV PUSH 4 mg Q4H PRN Administration Pain Rated 7-10 Ondansetron HCl 4 mg 05/10/23 11:09 Ondansetron Inj 4 Mg/2 Ml Vial IV PUSH Q4H PRN Nausea Radiology Results: ITS Impressions Abscess Drainage Ultrasound 05/10/23 14:42 IMPRESSION: 1. Successful ultrasound-guided left rectus abdominis muscle. This abscess drainage catheter placement. 2. 13 mL round appearing fluid was sent for Gram stain and aerobic and anaerobic cultures. 3. The catheter will be managed by Dr. Garcia. Abdomen/Pelvis CT 05/12/23 09:58 IMPRESSION: 1. Decrease in size of a now 12.3 x 2.4 x 6.7 cm abscess within the deep lower abdominal wall with percutaneous drainage catheter in ex
[2023-05-12 14:00] VITALS: BP 165/68; PULSE 67; RESP 26; TEMP 37.4; O2SAT 90
--- NOTE | 2023-05-12 14:36 | PCCCNOTE ---
On 05/12/23, the student, [Zenia Yusuf ], provided care and [facility]. I have reviewed the student's documentation and agree with the findings.
[2023-05-12] MEDS: MORPHINE SULFATE (*CRX) 4 MG/ML INJ IV PUSH (15:59)
[2023-05-12 21:16] VITALS: BP 126/77; PULSE 96; RESP 18; TEMP 36.1; O2SAT 96
[2023-05-12] MEDS: HYDROcodone/acetaminophen (*CRX) 5-325 MG TABLET 1 TAB PO (21:39)
[2023-05-13] MEDS: PIPERACILLN/TAZ 3.375GM/NS50ML 3.375 GM/50 ML BAG IVPB ×2 (00:32→06:19)
[2023-05-13 06:00] VITALS: BP 133/83; PULSE 91; RESP 14; TEMP 36.5; O2SAT 99
[2023-05-13] MEDS: LORATADINE 10 MG TABLET PO (08:27)
--- NOTE | 2023-05-13 09:16 | P.PNIM_ITS ---
Progress Note: A&P Assessment and Plan (1) Abdominal abscess: Status: Acute Assessment and Plan: * Presented presented to the ED with complaints of constant left lower abdominal pain for about 2 weeks * CT of the abd/pel 12.1 x 3.9 x 7.9cm abscess medially subjacent/deep rectus abdominis musculature (05/10/23) * Repeat CT pending results * General surgery consulted * Continue Zosyn Q6H IV for now * Perc Drain still draining brown/booker thick purulent fluid * Blood cultures pending * Wound cultures WBC no organisms seen * WBC 24.7 upon admission, improving * 05/13 added Vancomycin due to wound culture growing Staph aureus, sensitivities pending; stopped Zosyn (2) Asthma: Qualifiers: Asthma severity: unspecified severity Asthma persistence: unspecified Asthma complication type: unspecified Qualified Code(s): J45.909 - Unspecified asthma, uncomplicated Code(s): J45.909 - Unspecified asthma, uncomplicated Status: Acute Assessment and Plan: * Chronic and stable * Continue with inhaler * trend respiratory distress * stable at this time (3) Allergic rhinitis: Qualifiers: Allergic rhinitis trigger: unspecified Allergic rhinitis seasonality: unspecified Qualified Code(s): J30.9 - Allergic rhinitis, unspecified Code(s): J30.9 - Allergic rhinitis, unspecified Status: Acute Assessment and Plan: * Continue with allergy medicine. (4) Sepsis: Qualifiers: Sepsis acute organ dysfunction status: unspecified Sepsis type: sepsis due to unspecified organism Qualified Code(s): A41.9 - Sepsis, unspecified organism Code(s): A41.9 - Sepsis, unspecified organism Status: Acute Assessment and Plan: * Currently meets SIRS criteria heart rate 116, RR 36, Lactic acid 2.1, WBC was 24.7 source of infection * Source of infection is the abdominal abscess * CT of abdomen shows pretty large abscess * Repeat Lactic 1.4 * Blood cultures NGTD * wound culture does not show any organisms * Continue IV antibiotics Zosyn * Trend labs * Adjust therapy as indicated * Resolving (5) Migraine: Qualifiers: Migraine type: without aura Status migrainosus presence: with status migrainosus Intractability: intractable Qualified Code(s): G43.011 - Migraine without aura, intractable, with status migrainosus Code(s): G43.909 - Migraine, unspecified, not intractable, without status migrainosus Status: Acute Assessment and Plan: * Noted migraine on exam * On time Imitrex, Reglan, and Benadryl * trend symptoms * Resolved Subjective Date/time seen: 05/13/23 09:16 Interval history: Left lower quadrant abscess and drain site feeling much better today. Tolerating his diet. Denied fevers chills or sweats. Denied chest pain shortness of breath abnormal bleeding bowel or bladder issues weakness or numbness or swelling. Review of Systems Review of Systems: All systems reviewed & are unremarkable except as noted in HPI and below Exam Narrative: HEENT: PERRL, sclerae nonicteric, pharyngeal mucosa pink and intact NECK: No JVD CHEST: Clear to auscultation. Normal effort. HEART: NL S1/S2, regular, no murmur ABDOMEN: BS+, soft, nontender, no mass, no bruits, left lower quadrant bandage with drain noted. EXTREMITIES: No cyanosis, edema, or clubbing N
--- NOTE | 2023-05-13 09:16 | PM.IMPN ---
Progress Note: A&P Assessment and Plan (1) Abdominal abscess: Status: Acute Assessment and Plan: Presented presented to the ED with complaints of constant left lower abdominal pain for about [address] of the abd/pel 12.1 x 3.9 x 7.9cm abscess medially subjacent/deep rectus abdominis musculature (05/10/23) Repeat CT pending results General surgery consulted Continue Zosyn Q6H IV for now Perc Drain still draining brown/booker thick purulent fluid Blood cultures pending Wound cultures WBC no organisms seen WBC 24.7 upon admission, improving 05/13 added Vancomycin due to wound culture growing Staph aureus, sensitivities pending; stopped Zosyn (2) Asthma: Qualifiers: Asthma severity: unspecified severity Asthma persistence: unspecified Asthma complication type: unspecified Qualified Code(s): J45.909 - Unspecified asthma, uncomplicated Code(s): J45.909 - Unspecified asthma, uncomplicated Status: Acute Assessment and Plan: Chronic and stable Continue with inhaler trend respiratory distress stable at this time (3) Allergic rhinitis: Qualifiers: Allergic rhinitis trigger: unspecified Allergic rhinitis seasonality: unspecified Qualified Code(s): J30.9 - Allergic rhinitis, unspecified Code(s): J30.9 - Allergic rhinitis, unspecified Status: Acute Assessment and Plan: Continue with allergy medicine. (4) Sepsis: Qualifiers: Sepsis acute organ dysfunction status: unspecified Sepsis type: sepsis due to unspecified organism Qualified Code(s): A41.9 - Sepsis, unspecified organism Code(s): A41.9 - Sepsis, unspecified organism Status: Acute Assessment and Plan: Currently meets SIRS criteria heart rate 116, RR 36, Lactic acid 2.1, WBC was 24.7 source of infection Source of infection is the abdominal abscess CT of abdomen shows pretty large abscess Repeat Lactic 1.4 Blood cultures NGTD wound culture does not show any organisms Continue IV antibiotics Zosyn Trend labs Adjust therapy as indicated Resolving (5) Migraine: Qualifiers: Migraine type: without aura Status migrainosus presence: with status migrainosus Intractability: intractable Qualified Code(s): G43.011 - Migraine without aura, intractable, with status migrainosus Code(s): G43.909 - Migraine, unspecified, not intractable, without status migrainosus Status: Acute Assessment and Plan: Noted migraine on exam On time Imitrex, Reglan, and Benadryl trend symptoms Resolved Subjective Date/time seen: 05/13/23 09:16 Interval history: Left lower quadrant abscess and drain site feeling much better today. Tolerating his diet. Denied fevers chills or sweats. Denied chest pain shortness of breath abnormal bleeding bowel or bladder issues weakness or numbness or swelling. Review of Systems Review of Systems: All systems reviewed & are unremarkable except as noted in HPI and below Exam Narrative: HEENT: PERRL, sclerae nonicteric, pharyngeal mucosa pink and intact NECK: No JVD CHEST: Clear to auscultation. Normal effort. HEART: NL S1/S2, regular, no murmur ABDOMEN: BS+, soft, nontender, no mass, no bruits, left lower quadrant bandage with drain noted. EXTREMITIES: No cyanosis, edema, or clubbing NEUROLOGIC: CN intact and symmetric to inspection. MUSCULOSKELETAL: Tone and strength symmetric. PSYCH: Alert. Oriented to person, place, and time. Objective Data Vital Signs Vital Signs: Vital Signs - 24 hr 05/12/23 09:40 05/12/23 14:00 05/12/23 21:16 Temperature 99.3 F 97.0 F L Pulse Rate 67 96 Respiratory Rate 26 H 18 Blood Pressure 165/68 H 126/77 Pulse Oximetry 90 96 Oxygen Delivery Room Air 05/13/23 06:00 Temperature 97.7 F Pulse Rate 91 Respiratory Rate 14 Blood Pressure 133/83 Pulse Oximetry 99 Oxygen Delivery
--- NOTE | 2023-05-13 09:59 | PM.PNGS ---
Progress Note: A&P Assessment and Plan (1) Abdominal abscess: Status: Acute Assessment and Plan: clinical exam benign, cont drain and abx Subjective Subjective Date/Time Seen: 05/13/23 09:59 Interval history: feels ok, pain and soreness improved Review of Systems Review of Systems: All systems reviewed & are unremarkable except as noted in HPI and below Exam Const: General: cooperative, comfortable and no acute distress Resp: Auscultation: clear to auscultation bilaterally Cardio: Rate: regular rate Rhythm: regular rhythm GI: Inspection: normal to inspection Other: drain - purulent drainage Objective Data Vital Signs Vital Signs: Vital Signs - 24 hr 05/12/23 14:00 05/12/23 21:16 05/13/23 06:00 Temperature 37.4 C 36.1 C L 36.5 C Pulse Rate 67 96 91 Respiratory Rate 26 H 18 14 Blood Pressure 165/68 H 126/77 133/83 Pulse Oximetry 90 96 99 Oxygen Delivery Fraction of Inspired Oxygen 05/13/23 08:00 Temperature Pulse Rate Respiratory Rate Blood Pressure Pulse Oximetry Oxygen Delivery Room Air Fraction of Inspired Oxygen 21 Intake/Output Intake/Output: Intake & Output 05/10/23 05/11/23 05/12/23 05/13/23 23:59 23:59 23:59 23:59 Intake Total 2572 4584 1498 170 Output Total 13 960 55 Balance 2551 5084 1443 170 Meds/Results Medications: Active Medications Generic Name Dose Route Start Last Admin Trade Name Freq PRN Reason Stop Dose Admin Hydrocodone Bitart/Acetaminophen 1 tab 05/10/23 17:57 05/12/23 21:39 Hydrocodone/Acetaminophen (*Crx) 5-325 Mg Tablet PO 1 tab Q4H PRN Administration Pain Rated 4-6 Albuterol 2 puff 05/10/23 17:54 Albuterol Sulfate (*Sp) Aerosol 1 Puff INHALATION Q4HRT PRN shortness of breath or wheezing Vancomycin HCl 1,500 mg in 500 mls @ 250 mls/hr 05/13/23 10:00 Vancomycin 1,500 Mg/D5w 500 Ml IVPB Q12H SOFIA Loratadine 10 mg 05/11/23 09:00 05/13/23 08:27 Loratadine 10 Mg Tablet PO 10 mg DAILY SOFIA Administration Morphine Sulfate 4 mg 05/10/23 11:09 05/12/23 15:59 Morphine Sulfate (*Crx) 4 Mg/Ml Inj IV PUSH 4 mg Q4H PRN Administration Pain Rated 7-10 Ondansetron HCl 4 mg 05/10/23 11:09 Ondansetron Inj 4 Mg/2 Ml Vial IV PUSH Q4H PRN Nausea Radiology Results: ITS Impressions Abscess Drainage Ultrasound 05/10/23 14:42 IMPRESSION: 1. Successful ultrasound-guided left rectus abdominis muscle. This abscess drainage catheter placement. 2. 13 mL round appearing fluid was sent for Gram stain and aerobic and anaerobic cultures. 3. The catheter will be managed by Dr. Garcia. Abdomen/Pelvis CT 05/12/23 09:58 IMPRESSION: 1. Decrease in size of a now 12.3 x 2.4 x 6.7 cm abscess within the deep lower abdominal wall with percutaneous drainage catheter in expected position.
[2023-05-13 14:24] VITALS: BP 131/81; PULSE 92; RESP 20; TEMP 36.9; O2SAT 97
[2023-05-13 21:11] VITALS: BP 135/92; PULSE 85; RESP 16; TEMP 36.6; O2SAT 97
[2023-05-14 05:17] VITALS: BP 140/97; PULSE 66; RESP 15; TEMP 35.7; O2SAT 99
[2023-05-14 06:41] LABS: Hematocrit 40.9 % (42.0-52.0); Hemoglobin 13.1 g/dL (14.0-18.0); Mean Corpuscular Hemoglobin 27.6 pg (26-34); Mean Corpuscular Volume 86.3 fl (80-100); Platelet Count Result 512 k/mm3 (150-375); Red Blood Count 4.74 M/mm3 (4.6-6.20); Red Cell Distribution Width 13.1 % (11.5-14.5); White Blood Count 11.1 K/mm3 (4.5-10.0)
[2023-05-14 07:18] LABS: Anion Gap 5 mmol/L (8-16); Blood Urea Nitrogen 19 mg/dL (9-20); Calcium 8.9 mg/dL (8.4-10.2); Carbon Dioxide 27 mmol/L (22-30); Chloride 101 mmol/L (98-107); Estimated CRCL calculation 80 ml/min; Estimated Glomerular Filt Rate > 60; Glucose 109 mg/dL (65-110); Potassium 4.4 mmol/L (3.4-5.0); Sodium 133 mmol/L (137-145)
--- NOTE | 2023-05-14 07:56 | PM.PNGS ---
Progress Note: A&P Assessment and Plan (1) Abdominal abscess: Status: Acute Assessment and Plan: cont drain, ok to change to po abx and dc home, teach drain care, f/u c Dr. Garcia later this week, will likely need repeat imaging prior to drain removal Subjective Subjective Date/Time Seen: 05/14/23 07:56 Interval history: feels good, soreness moderate c movt Review of Systems Review of Systems: All systems reviewed & are unremarkable except as noted in HPI and below Exam Const: General: cooperative, comfortable and no acute distress Resp: Auscultation: clear to auscultation bilaterally Cardio: Rate: regular rate Rhythm: regular rhythm GI: Inspection: normal to inspection GI Palp: Yes abdominal tenderness, Yes Soft to palpation, Yes Tenderness to palpation present (GI), No Guarding due to palpation present (GI) and No Rigid due to palpation Other: drain c purulent output Objective Data Vital Signs Vital Signs: Vital Signs - 24 hr 05/13/23 08:00 05/13/23 14:24 05/13/23 21:11 Temperature 36.9 C 36.6 C Pulse Rate 92 85 Respiratory Rate 20 16 Blood Pressure 131/81 135/92 H Pulse Oximetry 97 97 Oxygen Delivery Room Air Fraction of Inspired Oxygen 21 05/14/23 05:17 05/14/23 07:20 Temperature 35.7 C L Pulse Rate 66 Respiratory Rate 15 Blood Pressure 140/97 H Pulse Oximetry 99 Oxygen Delivery Room Air Fraction of Inspired Oxygen Intake/Output Intake/Output: Intake & Output 05/11/23 05/12/23 05/13/23 05/14/23 23:59 23:59 23:59 23:59 Intake Total 4584 1498 1430 500 Output Total 960 55 200 0 Balance 3624 1443 1230 500 Meds/Results Medications: Active Medications Generic Name Dose Route Start Last Admin Trade Name Freq PRN Reason Stop Dose Admin Hydrocodone Bitart/Acetaminophen 1 tab 05/10/23 17:57 05/12/23 21:39 Hydrocodone/Acetaminophen (*Crx) 5-325 Mg Tablet PO 1 tab Q4H PRN Administration Pain Rated 4-6 Albuterol 2 puff 05/10/23 17:54 Albuterol Sulfate (*Sp) Aerosol 1 Puff INHALATION Q4HRT PRN shortness of breath or wheezing Vancomycin HCl 1,500 mg in 500 mls @ 250 mls/hr 05/13/23 10:00 05/14/23 00:15 Vancomycin 1,500 Mg/D5w 500 Ml IVPB Infused Q12H SOFIA Infusion Loratadine 10 mg 05/11/23 09:00 05/13/23 08:27 Loratadine 10 Mg Tablet PO 10 mg DAILY SOFIA Administration Morphine Sulfate 4 mg 05/10/23 11:09 05/12/23 15:59 Morphine Sulfate (*Crx) 4 Mg/Ml Inj IV PUSH 4 mg Q4H PRN Administration Pain Rated 7-10 Ondansetron HCl 4 mg 05/10/23 11:09 Ondansetron Inj 4 Mg/2 Ml Vial IV PUSH Q4H PRN Nausea Radiology Results: ITS Impressions Abscess Drainage Ultrasound 05/10/23 14:42 IMPRESSION: 1. Successful ultrasound-guided left rectus abdominis muscle. This abscess drainage catheter placement. 2. 13 mL round appearing fluid was sent for Gram stain and aerobic and anaerobic cultures. 3. The catheter will be managed by Dr. Garcia. Abdomen/Pelvis CT 05/12/23 09:58 IMPRESSION: 1. Decrease in size of a now 12.3 x 2.4 x 6.7 cm abscess within the deep lower abdominal wall with percutaneous drainage catheter in expected position. Labs Labs: Laboratory Results - last 24 hr 05/14/23 06:03 WBC 11.1 H RBC 4.74 Hgb 13.1 L Hct 40.9 L MCV 86.3 MCH 27.6 MCHC 32.0 RDW 13.1 Plt Count 512 H MPV 9.0 Sodium 133 L Potassium 4.4 Chloride 101 Carbon Dioxide 27 Anion Gap 5 L BUN 19 Creatinine 1.00 Estim Creat Clear Calc 80 Estimated GFR > 60 Glucose 109 Calcium 8.9
[2023-05-14] MEDS: LORATADINE 10 MG TABLET PO (11:38)
[2023-05-14 14:00] VITALS: BP 135/85; PULSE 83; RESP 14; TEMP 35.7; O2SAT 97
--- NOTE | 2023-05-14 16:05 | PM.DS ---
DS: Admitting Diagnosis Discharge Date May 14, 2023 Admitting Diagnosis Abdominal wall abscess DS: Discharge Diagnosis Discharge Diagnosis (1) Abdominal abscess: Status: Acute Assessment and Plan: Presented presented to the ED with complaints of constant left lower abdominal pain for about [address] of the abd/pel 12.1 x 3.9 x 7.9cm abscess medially subjacent/deep rectus abdominis musculature (05/10/23) Repeat CT pending results General surgery consulted Continue Zosyn Q6H IV for now Perc Drain still draining brown/booker thick purulent fluid Blood cultures pending Wound cultures WBC no organisms seen WBC 24.7 upon admission, improving 05/13 added Vancomycin due to wound culture growing Staph aureus, sensitivities pending; stopped Zosyn 05/14 MRSA sensitive to Bactrim DS so discharge on one additional week of that (2) Asthma: Qualifiers: Asthma severity: unspecified severity Asthma persistence: unspecified Asthma complication type: unspecified Qualified Code(s): J45.909 - Unspecified asthma, uncomplicated Code(s): J45.909 - Unspecified asthma, uncomplicated Status: Acute Assessment and Plan: Chronic and stable Continue with inhaler trend respiratory distress stable at this time (3) Allergic rhinitis: Qualifiers: Allergic rhinitis trigger: unspecified Allergic rhinitis seasonality: unspecified Qualified Code(s): J30.9 - Allergic rhinitis, unspecified Code(s): J30.9 - Allergic rhinitis, unspecified Status: Acute Assessment and Plan: Continue with allergy medicine. (4) Sepsis: Qualifiers: Sepsis acute organ dysfunction status: unspecified Sepsis type: sepsis due to unspecified organism Qualified Code(s): A41.9 - Sepsis, unspecified organism Code(s): A41.9 - Sepsis, unspecified organism Status: Acute Assessment and Plan: resolved (5) Migraine: Qualifiers: Migraine type: without aura Status migrainosus presence: with status migrainosus Intractability: intractable Qualified Code(s): G43.011 - Migraine without aura, intractable, with status migrainosus Code(s): G43.909 - Migraine, unspecified, not intractable, without status migrainosus Status: Acute Assessment and Plan: Resolved DS: Summary Hospital Course Reason for hospitalization: Left lower abdominal wall swelling and pain Hospital Course: Admitted May 10 with left lower abdominal wall swelling and pain. CT of abdomen and pelvis was performed and showed a small fat containing left inguinal hernia and an abscess in the deep abdominal wall. He underwent ultrasound-guided placement of a drain that day. He was followed by surgical service. They flush the drain due to poor drainage. He was initially treated with Zosyn starting on May 10. Vancomycin was added 05/13 when Staph aureus was reported as growing. On 05/14 MRSA sensitive to tetracycline clindamycin and Bactrim was confirmed. His pain and almost completely resolved and he was tolerating his diet number about independently able to shower dress and eat and toilet without assistance. He wished to go home and follow-up as an outpatient. Time Spent with Patient Time attestation: Total time spent providing and/or coordinating discharge services: Exam Narrative: HEENT: PERRL, sclerae nonicteric, pharyngeal mucosa pink and intact NECK: No JVD CHEST: Clear to auscultation. Normal effort. HEART: NL S1/S2, regular, no murmur ABDOMEN: BS+, soft, nontender, no mass, no bruits, left lower quadrant bandage with drain noted. EXTREMITIES: No cyanosis, edema, or clubbing NEUROLOGIC: CN intact and symmetric to inspection. MUSCULOSKELETAL: Tone and strength symmetric. PSYCH: Alert. Oriented to person, place, and time. DS: Data Data Completed and Pending Labs on day of discharge: Labs from last
== END 2023-05-14 16:42 | disposition home or self-care (01) | DRG 720 ==
LOC: ANHED 11:17 → ANH3MEDSUR 11:48
PROVIDERS: Nurse Practitioner; Admitting Provider Family Medicine; Emergency Provider General Practice; Visit Provider Internal Medicine
DX: A41.9 Sepsis, unspecified organism (principal); M60.08 Infective myositis, other site; B95.62 Methicillin resistant Staphylococcus aureus infection as the cause of diseases classified elsewhere; J45.909 Unspecified asthma, uncomplicated; J30.9 Allergic rhinitis, unspecified; G43.909 Migraine, unspecified, not intractable, without status migrainosus
CPT/HCPCS: 10160; 36415; 74177; 80048; 80053; 81001; 83605; 83690; 83735; 85025; 85027; 85610; 85730; 87040; 87070; 87075; 87147; 87181; 87186; 87205; 96361; 96374; 99285; A9270; C1729; J1200; J1885; J2270; J2543; J2765; J3370; J7030; Q9967